=== PATIENT | female | born 1990 | race Caucasian/White ===

== ENCOUNTER 2021-03-16 17:47 | Emergency (ER) | payer SELFPAY ==
[~2021-03-16] VITALS: Ht 162.6 cm; Wt 57.0 kg
[2021-03-16 19:00] VITALS: BP 153/100
[2021-03-16] MEDS ORDERED: BUPR1FIL3 SL (19:05)
== END 2021-03-16 19:30 | disposition home or self-care (01) ==
LOC: ER 17:47
DX: F11.23 Opioid dependence with withdrawal (principal); I10 Essential (primary) hypertension; Z88.8 Allergy status to other drugs, medicaments and biological substances; Z79.899 Other long term (current) drug therapy; Z98.890 Other specified postprocedural states; Z76.0 Encounter for issue of repeat prescription
CPT/HCPCS: 99282